=== PATIENT | female | born 1960 | race Two or more races ===

== ENCOUNTER 2024-05-04 18:06 | Emergency (ER) | payer BC, OTHER ==
[~2024-05-04] VITALS: Ht 167.6 cm; Wt 73.8 kg
[2024-05-04 21:34] VITALS: RESP 17; O2SAT 98
[2024-05-04 22:10] VITALS: BP 125/73; PULSE 71; TEMP 98.3
[2024-05-04] MEDS ORDERED: DOXY100C4 PO (22:35)
[2024-05-04] MEDS: cefTRIAXone SOD 500 MG VL IM ONE (22:42)
[2024-05-04] MEDS: cefTRIAXone SOD 1,000 MG VL IM ONE (22:55)
== END 2024-05-04 23:01 | disposition home or self-care (01) ==
LOC: ER 18:06
DX: S80.862A Insect bite (nonvenomous), left lower leg, initial encounter (principal); B96.89 Other specified bacterial agents as the cause of diseases classified elsewhere; W57.XXXA Bitten or stung by nonvenomous insect and other nonvenomous arthropods, initial encounter; Y93.89 Activity, other specified; Y92.89 Other specified places as the place of occurrence of the external cause; Y99.8 Other external cause status
CPT/HCPCS: 96372; 99283; J0696